=== PATIENT | female | born 1960 | race Caucasian/White ===

== ENCOUNTER 2018-04-08 09:22 | Emergency (ER) | payer OTHER ==
[~2018-04-08] VITALS: Ht 149.9 cm; Wt 58.8 kg
--- NOTE | 2018-04-08 10:06 | NUR ---
Amb from lobby to rm 19. Sent by for further eval. of CP. Pt dx w/ influenza A, no cardiac hx. EKG done in triage, labs drawn & x-ray completed from PIT orders. Cardiac, NIBP & SPO2 monitors IP.
[2018-04-08 10:18] LABS: BASOPHILS # (AUTO) 0.02 x10^3/uL (0-0.1); BASOPHILS % (AUTO) 1 % (0-1); EOSINOPHILS % (AUTO) 0 % (1-7); LYMPHOCYTES # (AUTO) 0.79 x10^3/uL (1-3.4); LYMPHOCYTES % (AUTO) 15 % (22-44); MD NO; MEAN CORPUSCULAR HEMOGLOBIN 30.2 pg (27.0-34.8); MEAN CORPUSCULAR HGB CONC 33.9 g/dL (32.4-35.8); MEAN PLATELET VOLUME 9.8 fL (7.4-10.4); MONOCYTES # (AUTO) 0.51 x10^3/uL (0.2-0.8); MONOCYTES % (AUTO) 10 % (2-9); NEUTROPHILS # (AUTO) 3.84 x10^3/uL (1.8-6.8); NEUTROPHILS % (AUTO) 74 % (42-75); PLATELET COUNT 186 x10^3/uL (130-400); RED BLOOD COUNT 4.73 x10^6/uL (3.82-5.3); RED CELL DISTRIBUTION WIDTH 12.4 % (9.6-15.2)
[2018-04-08 10:25] LABS: ANION GAP 5 mmol/L (5-15); CALCIUM 8.9 mg/dL (8.5-10.1); CHLORIDE 100 mmol/L (98-107)
[2018-04-08 10:26] LABS: CREATININE 0.64 mg/dL (0.55-1.02)
--- NOTE | 2018-04-08 11:04 | NUR ---
MD RAGSDALE WITH LABS ADDED
[2018-04-08 11:26] LABS: TROPONIN I < 0.015 ng/mL (0.000-0.045)
[2018-04-08 11:52] VITALS: BP 115/85
--- NOTE | 2018-04-08 11:52 | NUR ---
AMBULATED WITHOUT ASSISTANCE TO BATHROOM
--- NOTE | 2018-04-08 12:05 | NUR ---
ambulated to discharge window, steady gait
== END 2018-04-08 12:07 | disposition home or self-care (01) ==
LOC: ED 12:02
DX: J10.1 Influenza due to other identified influenza virus with other respiratory manifestations (principal); R09.1 Pleurisy
CPT/HCPCS: 36415; 71046; 80048; 82040; 84484; 85025; 93005; 99284

== ENCOUNTER → 2018-07-25 | Outpatient (CLI) | payer OTHER | END | disposition home or self-care (01) | LOC: CFH 15:54 | PROVIDERS: ATTEND Family Medicine | DX: M25.511 Pain in right shoulder (principal) ==

== ENCOUNTER 2018-08-13 15:11 | Outpatient (CLI) | payer OTHER | END 2018-08-13 23:59 | disposition home or self-care (01) | LOC: CFH 15:11 | PROVIDERS: ATTEND Family Medicine | DX: Z12.31 Encounter for screening mammogram for malignant neoplasm of breast (principal) | CPT/HCPCS: 77067 ==

== ENCOUNTER 2019-05-23 17:18 | Emergency (ER) | payer OTHER ==
[~2019-05-23] VITALS: Ht 154.9 cm; Wt 58.5 kg
[2019-05-23] MEDS ORDERED: SODIUM CHLORIDE FLUSH 10ML SYR IVF ONE (18:00)
[2019-05-23] MEDS ORDERED: SODIUM CHLORIDE 0.9% 1,000ML IVBOLUS ONE (18:00)
[2019-05-23] MEDS ORDERED: ADENOSINE 6 MG/2 ML IVPush ONE ×2 (18:00)
[2019-05-23] MEDS ORDERED: ADENOSINE 6 MG/2 ML ONE (18:15)
--- NOTE | 2019-05-23 18:27 | NUR ---
RN to bedside, shortly behind provider. RN was told patient needed to be placed on monitor, health and wellness coach, defibrillation pads. RN to bedside, initiated peripheral intravenous access, labs were drawn and patient was attached to defibrillation pads. While an RN was assisting to bring fluids and medications to bedside, patient converted from a heart rate of 140-150 to a heart rate of 80.
[2019-05-23] MEDS ORDERED: CEFTRIAXONE PMX 1GM/50ML 50 ML ONE (18:28)
[2019-05-23 18:47] LABS: BASOPHILS # (AUTO) 0.03 x10^3/uL (0-0.1); BASOPHILS % (AUTO) 0 % (0-1); EOSINOPHILS # (AUTO) 0.17 x10^3/uL (0-0.4); EOSINOPHILS % (AUTO) 3 % (1-7); LYMPHOCYTES # (AUTO) 2.24 x10^3/uL (1-3.4); LYMPHOCYTES % (AUTO) 34 % (22-44); MD NO; MEAN CORPUSCULAR HEMOGLOBIN 30.4 pg (27.0-34.8); MEAN CORPUSCULAR HGB CONC 33.9 g/dL (32.4-35.8); MEAN CORPUSCULAR VOLUME 89.6 fL (80-100); MEAN PLATELET VOLUME 10.6 fL (7.4-10.4); MONOCYTES # (AUTO) 0.58 x10^3/uL (0.2-0.8); MONOCYTES % (AUTO) 9 % (2-9); NEUTROPHILS # (AUTO) 3.65 x10^3/uL (1.8-6.8); NEUTROPHILS % (AUTO) 55 % (42-75); PLATELET COUNT 232 x10^3/uL (130-400); RED BLOOD COUNT 4.75 x10^6/uL (3.82-5.3)
[2019-05-23 18:59] LABS: ALANINE AMINOTRANSFERASE 46 U/L (12-78); ALBUMIN 3.9 g/dL (3.4-5.0); ANION GAP 6 mmol/L (5-15); CALCIUM 9.4 mg/dL (8.5-10.1); CHLORIDE 109 mmol/L (98-107)
[2019-05-23 19:10] LABS: ALKALINE PHOSPHATASE 86 U/L (45-117); BILIRUBIN,TOTAL 0.3 mg/dL (0.2-1.0); CREATININE 0.84 mg/dL (0.55-1.02); TOTAL PROTEIN 7.8 g/dL (6.4-8.2)
--- NOTE | 2019-05-23 19:11 | NUR ---
Patient remains in sinus rhythm, remaining on defibrillator. Needfollow up EKG.
[2019-05-23 19:23] VITALS: BP 98/72
== END 2019-05-23 20:07 | disposition home or self-care (01) ==
LOC: ED 17:47
DX: I47.1 Supraventricular tachycardia (principal); R94.31 Abnormal electrocardiogram [ECG] [EKG]
CPT/HCPCS: 36415; 80053; 84443; 85025; 93005; 99284

== ENCOUNTER → 2019-07-31 | Outpatient (CLI) | payer OTHER ==
[~2019-07-31] MED LIST: REGADENOSON 0.4 MG/5 ML SYRINGE ONE
== END | disposition home or self-care (01) ==
LOC: CFH 12:44
PROVIDERS: ATTEND Internal Medicine Cardiovascular Disease
DX: I36.1 Nonrheumatic tricuspid (valve) insufficiency (principal)
CPT/HCPCS: 78452; 93017; 93306; A9502; J2785

== ENCOUNTER 2020-08-14 09:28 | Emergency (ER) | payer OTHER ==
[~2020-08-14] VITALS: Ht 149.9 cm; Wt 55.0 kg
[2020-08-14] MEDS ORDERED: LORazepam 2 MG/ML, 1ML IVPush ONE (10:00)
[2020-08-14] MEDS ORDERED: SODIUM CHLORIDE 0.9% 1,000ML IVBOLUS ONE (10:00)
[2020-08-14] MEDS ORDERED: SODIUM CHLORIDE FLUSH 10ML SYR IVF ONE (10:00)
--- NOTE | 2020-08-14 10:04 | NUR ---
PT PLACED ON ALL ROOM MONITORING. HR 150S ST, OTHER VSS. IV PLACED,LABS DRAWN WITH START. NS BOLUS INFUSING. PT DENIES ANY SX AT THIS TIME. CALL LIGHT WITHIN REACH. PT AND FAMILY UPDATED ON POC.
[2020-08-14] MEDS ORDERED: LORazepam 2 MG/ML, 1ML ONE (10:08)
--- NOTE | 2020-08-14 10:10 | NUR ---
PT MEDICATED PER ERP ORDER. CALL LIGHT WITHIN REACH, FAMILY AT BS.
[2020-08-14 10:18] LABS: BASOPHILS % (AUTO) 2 % (0-1); EOSINOPHILS % (AUTO) 2 % (1-7); LYMPHOCYTES % (AUTO) 28 % (22-44); MEAN CORPUSCULAR HEMOGLOBIN 30.6 pg (27.0-34.8); MEAN CORPUSCULAR HGB CONC 33.2 g/dL (32.4-35.8); MEAN PLATELET VOLUME 10.2 fL (7.4-10.4); MONOCYTES % (AUTO) 8 % (2-9); NEUTROPHILS % (AUTO) 61 % (42-75); PLATELET COUNT 263 x10^3/uL (130-400); RED BLOOD COUNT 5.09 x10^6/uL (3.82-5.3); RED CELL DISTRIBUTION WIDTH 12.9 % (9.6-15.2)
[2020-08-14 10:24] LABS: ALBUMIN 4.2 g/dL (3.4-5.0); CALCIUM 9.8 mg/dL (8.5-10.1); CHLORIDE 107 mmol/L (98-107)
[2020-08-14 10:29] LABS: ALANINE AMINOTRANSFERASE 26 U/L (12-78); ALKALINE PHOSPHATASE 81 U/L (45-117); BILIRUBIN,TOTAL 0.5 mg/dL (0.2-1.0); TOTAL PROTEIN 8.2 g/dL (6.4-8.2); TROPONIN I < 0.015 ng/mL (0.000-0.045)
[2020-08-14 10:33] LABS: ANION GAP 5 mmol/L (5-15)
[2020-08-14 11:21] VITALS: BP 97/61
== END 2020-08-14 12:16 | disposition home or self-care (01) ==
LOC: ED 10:17
DX: I47.1 Supraventricular tachycardia (principal)
CPT/HCPCS: 36415; 71045; 80053; 83735; 84443; 84484; 85025; 93005; 96374; 99285; J2060; J7030

== ENCOUNTER 2020-08-23 06:00 | Day surgery (SDC) | payer OTHER ==
[~2020-08-23] VITALS: Ht 144.8 cm; Wt 56.4 kg
[2020-08-23] MEDS ORDERED: SODIUM CHLORIDE 0.9% 1,000 ML IV SCH (06:30)
[2020-08-23] MEDS ORDERED: METO25TA91 PO (06:31)
[2020-08-23] MEDS ORDERED: ALPR0.5T7 PO (06:31)
[2020-08-23 06:34] VITALS: BP 105/71
[2020-08-23 07:15] LABS: CALCIUM 9.2 mg/dL (8.5-10.1); CREATININE 0.53 mg/dL (0.55-1.02)
[2020-08-23 07:16] LABS: BASOPHILS % (AUTO) 1 % (0-1); EOSINOPHILS % (AUTO) 5 % (1-7); LYMPHOCYTES % (AUTO) 26 % (22-44); MEAN CORPUSCULAR HEMOGLOBIN 30.8 pg (27.0-34.8); MEAN CORPUSCULAR HGB CONC 33.9 g/dL (32.4-35.8); MONOCYTES % (AUTO) 7 % (2-9); NEUTROPHILS % (AUTO) 61 % (42-75); PLATELET COUNT 229 x10^3/uL (130-400); RED BLOOD COUNT 4.51 x10^6/uL (3.82-5.3)
[2020-08-23 07:38] LABS: ANION GAP 3 mmol/L (5-15); CHLORIDE 110 mmol/L (98-107)
[2020-08-23] MEDS ORDERED: MIDAZOLAM 1 MG/ML, 2ML ONE (07:46)
[2020-08-23] MEDS ORDERED: ISOPROTERENOL 0.2MG/ML, 5ML ONE (07:47)
[2020-08-23] MEDS ORDERED: FENTANYL PF 100 MCG/2ML ONE (07:47)
[2020-08-23] MEDS ORDERED: LIDOCAINE 1%, 20ML ONE (07:47)
== END 2020-08-23 14:06 | disposition home or self-care (01) ==
LOC: CACL 06:00
PROVIDERS: ATTEND Internal Medicine Cardiovascular Disease
DX: I47.1 Supraventricular tachycardia (principal); E78.5 Hyperlipidemia, unspecified; K21.9 Gastro-esophageal reflux disease without esophagitis; F41.9 Anxiety disorder, unspecified; E66.3 Overweight; Z68.25 Body mass index [BMI] 25.0-25.9, adult; Z79.899 Other long term (current) drug therapy
CPT/HCPCS: 36415; 80048; 85025; 93613; 93621; 93623; 93653; 99156; 99157; C1730; C1894; C2630; J2250; J3010